=== PATIENT | male | born 1990 | race Caucasian/White ===

== ENCOUNTER 2018-11-27 06:52 | Day surgery (SDC) | payer OTHER ==
[2018-11-24 16:55] VITALS: BMI 26.5
[2018-11-27] VITALS (15 sets, daily range): BP systolic 99–111; BP diastolic 49–59; PULSE 60–70; RESP 13–20; Ht 162.6 cm; Wt 70.4 kg
[~2018-11-27] VITALS: Ht 162.6 cm; Wt 70.4 kg
[2018-11-27] MEDS ORDERED: DICL100G37 TOP (07:30)
[2018-11-27] MEDS ORDERED: GABA400C14 PO (07:30)
[2018-11-27] MEDS ORDERED: CLON-379 PO (07:37)
--- NOTE | 2018-11-27 09:02 | PREAC ---
Date/Time of Note Date/Time of Note DATE: 11/27/18 TIME: 09:01 Anesthesia Eval and Record Evaluation Time Pre-Procedure Interview DATE: 11/27/18 TIME: 09:01 Age 28 Sex male NPO: 8 hrs Preoperative diagnosis RIGHT INGUINAL HERNIA Planned procedure OOPEN INGUINAL HERNIA REPAIR Past Medical History Past Medical History: Includes Cardio: HTN Surgery & Anesthesia Issues No known issue Meds Anticoagulation: No Beta Pablo within 24 hr: No Reason Beta Pablo not given: Pt. not on B-Pablo Reported Medications Clonidine Hcl* (Clonidine Hcl*) 0.1 Mg Tab, 0.1 MG PO Q12 PRN for ELEVATED BLOOD PRESSURE, TAB 11/27/18 Diclofenac Sodium* (Voltaren* Gel) 1% -100 Gm Gel, 2 GM TOP QID, #1 TUB 11/27/18 Gabapentin* (Gabapentin*) 400 Mg Capsule, 400 MG PO BID, #90 CAP 11/27/18 Current Medications Sodium Chloride 1,000 ml @ 75 mls/hr [id number] IV Last administered on 11/27/18at 07:55; Admin Dose 75 MLS/HR; Start 11/27/18 at 10:00; Stop 11/27/18 at 22:00 Cefazolin Sodium/ Dextrose 50 ml @ 100 mls/hr PRE-OP ONCE IVPB ; Start 11/27/18 at 10:00; Stop 11/27/18 at 10:29 Meds reviewed: Yes Allergies Coded Allergies: No Known Drug Allergy (Verified Allergy, Unknown, 11/27/18) Allergies Reviewed: Yes Labs/Studies Labs Reviewed: Reviewed by anesthesiologist test: N/A Studies: ECG (N/A), CXR (N/A) Pre-procedure Exam Last vitals Vital Signs Date Temp Pulse Resp B/P (MAP) Pulse Ox O2 O2 Flow FiO2 Time Delivery Rate 11/27/18 98.4 61 18 107/59 100 Room Air 08:02 (75) Airway: Adequate mouth opening Mallampati: Mallampati I Teeth: Normal Lung: Normal Heart: Normal ASA Physical Status ASA physical status: 2 Emergency: None Planned Anesthetic General/MAC: ETT Nerve block: TAP (right) Planned Pain Management Single shot nerve block, Parenteral pain med Pre-operative Attestations Prior to commencing anesthesia and surgery, the patient was re-evaluated, there was verification of: *The patient's identity *The results of appropriate recent lab work and preoperative vital signs *The above evaluation not changing prior to induction *Anesthetic plan, risk benefits, alternative and complications discussed with patient/family; questions answered; patient/family understands, accepts and wishes to proceed. CHASE BLANCAS MD November 27, 2018 09:02
[2018-11-27] MEDS ORDERED: POLYMYXIN/BACITRACIN 1L IRRIG ONE (09:03)
[2018-11-27] MEDS ORDERED: BUPIVACAINE 0.25%/EPI (SDV) 30 ML INJ ONE (09:03)
[2018-11-27] MEDS ORDERED: ROCURONIUM 50 MG INJ ONE (09:10)
[2018-11-27] MEDS ORDERED: GLYCOPYRROLATE 0.4 MG INJ ONE (09:10)
[2018-11-27] MEDS ORDERED: NEOSTIGMINE 3 MG/3 ML SYRINGE ONE (09:10)
[2018-11-27] MEDS ORDERED: PROPOFOL 20 ML ONE (09:10)
[2018-11-27] MEDS ORDERED: MIDAZOLAM 1 MG/ML 2 ML INJ ONE (09:11)
[2018-11-27] MEDS ORDERED: METOCLOPRAMIDE 10 MG INJ ONE (09:11)
[2018-11-27] MEDS ORDERED: CEFAZOLIN 1 GM INJ ONE (09:11)
[2018-11-27] MEDS ORDERED: ROPIVACAINE 0.5 % 30 ML VIAL ONE (09:11)
[2018-11-27] MEDS ORDERED: ONDANSETRON 4 MG INJ ONE (09:11)
[2018-11-27] MEDS ORDERED: HYDROmorphONE 1 MG/5 ML IV SYRINGE IV PRN ×3 (09:30)
[2018-11-27] MEDS ORDERED: KETOROLAC 30 MG INJ IV PRN ×2 (09:30→11:00)
[2018-11-27] MEDS ORDERED: ONDANSETRON 4 MG INJ IV PRN ×2 (09:30→11:00)
[2018-11-27] MEDS ORDERED: MEPERIDINE 25 MG INJ IV PRN (09:30)
[2018-11-27] MEDS ORDERED: DIPHENHYDRAMINE 50 MG INJ IV PRN (09:30)
[2018-11-27] MEDS ORDERED: hydrALAzine 20 MG INJ IV PRN (09:30)
[2018-11-27] MEDS ORDERED: LABETALOL HCL 20MG INJ IV PRN (09:30)
[2018-11-27] MEDS ORDERED: OXYCODONE/ACETAMINOPHEN (5/325) TAB PO PRN (09:30)
[2018-11-27] MEDS ORDERED: FENTAnyl 50 MCG/ML VIAL IV PRN ×2 (09:30)
[2018-11-27] MEDS ORDERED: CEFAZOLIN 2 GM/50 ML (PMX) 50 ML IVPB ONE (10:00)
[2018-11-27] MEDS ORDERED: SOD CHLORIDE 0.9% 1,000 ML IV SCH (10:00)
[2018-11-27] MEDS ORDERED: EPHEDrine 25 MG/5 ML SYG ONE (10:40)
[2018-11-27] MEDS ORDERED: morphine 2 MG INJ IV PRN (11:00)
[2018-11-27] MEDS ORDERED: IBUPROFEN 600 MG TAB PO PRN (11:00)
[2018-11-27] MEDS ORDERED: HYDROCODONE/APAP (5/325) TAB PO PRN ×2 (11:00)
--- NOTE | 2018-11-27 11:06 | OPR ---
Date/Time of Note Date/Time of Note DATE: 11/27/18 TIME: 11:00 Operative Report Procedure Date: November 27, 2018 Preoperative Diagnosis Right inguinal hernia without obstruction or gangrene Postoperative Diagnosis Right inguinal hernia without obstruction or gangrene Operation/Procedure Performed 1. Open right inguinal hernia repair with mesh 2. Spermatic cord lipectomy 3. Right ilioinguinal nerve block Surgeon see signature line Wool Fleece Sorter None Anesthesia Type: general Anesthesiologist: CHASE BLANCAS MD Estimated Blood Loss: minimal Transfusion none Specimen 1. Hernia sac 2. Lipoma of cord Grafts/Implants Ethicon ultra pro plug and patch size medium Complications none Pt Condition Post Procedure: stable Disposition: PACU Indications The patient is a 28-year-old male with a history of a vasectomy who presented to the office complaining of a painful right groin bulge. He was diagnosed on clinical exam as having a right inguinal hernia. The patient was scheduled for open right inguinal hernia repair with mesh to prevent sequelae of hernia disease which include, but are not limited to: Incarceration and coy ulation. All risks and benefits of the procedure including but not limited to: Wound infection, excessive bleeding, postoperative seroma/hematoma formation, nerve injury which may be temporary versus permanent, injury to the reproductive organs including the vas deferens and the testicle which may lead to testicular atrophy, injury to intra-abdominal organs necessitating subsequent operation, hernia recurrence, chronic pain, etc. were all explained to the patient full detail. The patient fully understood and wished to proceed with the procedure. Informed consent was therefore obtained. Procedure Description The patient was brought to the operating room and placed supine on the operating table. Bilateral sequential compression devices were placed on both lower extremities. A dose of broad-spectrum perioperative intravenous antibiotics was given. After the induction of smooth general anesthesia the patient's abdomen and bilateral groins were prepped and draped in standard surgical fashion. A tap block was performed by the anesthesiologist and will be documented by her separately. After performance of the surgical timeout 0.25% Marcaine with epinephrine was injected over the area of the incision. Incision was then made using a 15 blade scalpel from the right pubic tubercle towards the right anterior superior iliac spine. Incision was carried down through the skin into the subcutaneous tissues using Bovie electrocautery. Lucas's fascia was incised and the aponeurosis of the external oblique muscle was reached. The aponeurosis of the external oblique muscle was then incised in the direction of its fibers using a 15 blade scalpel and further opened using Metzenbaum scissors. The ilioinguinal nerve was identified on top of the spermatic cord. It was isolated and preserved throughout the entirety of the procedure. Using blunt dissection the spermatic cord was then mobilized off of the floor of the inguinal canal and encircled using a Rosa Isela drain. The cord structures were identified and preserved throughout the entirety of the procedure. Cremasteric muscles were incised and dissection of the cord was begun. A moderate sized indirect hernia sac was identified. It was dissected off of the cord. Dissection was continued towards the neck of the hernia. There was some chronic scarring in the area of the neck of the hernia sac. A small lipoma of the cord was identified. It was dissected free, transected at its base and passed off the field the specimen. Once the hernia sac was dissected free from surrounding tissues it was opened atraumatically. Omentum was identified within the sac. It was reduced. The sac was then transected and ligated with 2-0 Vicryl tie. Sac was passed off the field specimen. There was attenuation and weakening of the floor of the inguinal canal identified. The indirect hernia defect was then repaired using a medium sized Ethicon ultra pro plug. The plug was sutured in place using interrupted 3-0 Vicryl sutures. An onlay mesh was then used to reconstruct the floor of the inguinal canal. It was secured in place using interrupted 2-0 Novafil sutures. Both the plug and the mesh were soaked in antibiotic irrigation prior to placement in the field. A slit was made in the mesh to accommodate the spermatic cord. With the repair complete it was examined and noted to be hemostatic and tension-free. The wound cavity was then irrigated with more antibiotic containing irrigation. Spermatic cord was then placed back into its anatomical position. The aponeurosis of the external oblique muscle was then reapproximated using a running 3-0 Vicryl suture. Incision was then closed in layers using a running 3-0 Vicryl suture for the Lucas's fascia. The skin was then reapproximated using 4-0 Monocryl suture in a running subcuticular fashion. Attention was then turned to the right ilioinguinal nerve block. 10 cc of 0.25% Marcaine with epinephrine was then injected in a radial fashion approximately 2 fingerbreadths medial and inferior to the right anterior superior iliac spine. Incision was cleaned and Dermabond was applied. The patient was awoken from anesthesia and transferred to the recovery room in stable condition. Both testicles were palpated and noted to be in their anatomical positions at the end of the case. All counts were correct at the end of the case 2. WICHO NARANJO MD November 27, 2018 11:06
[2018-11-27] MEDS: FENTAnyl 50 MCG/ML VIAL IV PRN ×2 (11:15→11:23)
[2018-11-27] MEDS: OXYCODONE/ACETAMINOPHEN (5/325) TAB PO PRN ×2 (12:22→13:19)
--- NOTE | 2018-11-28 08:42 | PAC ---
Date/Time of Note Date/Time of Note DATE: 11/28/18 TIME: 08:41 Post-Anesthesia Notes Post-Anesthesia Note Last documented vital signs Vital Signs Date Temp Pulse Resp B/P (MAP) Pulse Ox O2 O2 Flow FiO2 Time Delivery Rate 11/27/18 96.8 66 16 100/56 99 12:07 (71) 11/27/18 Room Air 12:00 Activity: WNL Respiratory function: WNL Cardiovascular function: WNL Mental status: Baseline Pain reasonably controlled: Yes Hydration appropriate: Yes Nausea/Vomiting absent: No CHASE BLANCAS MD November 28, 2018 08:41
== END 2018-11-27 14:33 | disposition home or self-care (01) ==
LOC: SDS 06:52
PROVIDERS: ATTEND Surgery
DX: K40.90 Unilateral inguinal hernia, without obstruction or gangrene, not specified as recurrent (principal)
CPT/HCPCS: 49505; 88302; 88304; C1781; J0690; J1170; J2175; J2250; J2405; J2710; J2765; J2795; J3010; Z7512; Z7610